=== PATIENT | male | born 1975 | race Caucasian/White ===

== ENCOUNTER 2019-02-01 22:11 | Emergency (ER) | payer BC ==
[~2019-02-01] VITALS: Ht 167.6 cm; Wt 73.0 kg
[2019-02-01 22:11] VITALS: BP_SYST 150
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
--- NOTE | 2019-02-01 22:11 | NUR ---
Pt ambulatory to bd 3 for evalauation
--- NOTE | 2019-02-01 22:34 | NUR ---
Dr. Degroot at bedside to assess pt and perform eye exam.
[2019-02-01 22:38] VITALS: BP_SYST 145
--- NOTE | 2019-02-01 22:38 | NUR ---
Patient given written and verbal discharge instructions and verbalizes understanding. ER MD discussed with patient the results and treatment provided. Patient in stable condition. ID arm band removed. Rx of Garamycin 0.3% Opthalmic Drops given. Patient educated on pain management and to follow up with PMD. Pain Scale 0/10. Opportunity for questions provided and answered. Medication side effect fact sheet provided.
== END 2019-02-01 22:38 | disposition home or self-care (01) ==
LOC: SED 22:11
DX: H11.32 Conjunctival hemorrhage, left eye (principal)
CPT/HCPCS: 99283